=== PATIENT | female | born 1930 | race Caucasian/White ===

== ENCOUNTER 2017-04-07 22:57 | Emergency (ER) | payer MEDICARE, OTHER ==
[2013-11-22 18:27] VITALS: BMI 30.4
[~2017-04-07 22:57] MED LIST: COZAAR100 MG PO; LASIX40 MG PO; LEVAQUIN500 MG PO; MEDROL DOSE PACK4 MG PO; NEURONTIN 300300 MG PO; NEXIUM40 MG PO; NORVASC5 MG PO; NYSTATIN ORAL SU5 ML PO; PRAVASTATIN SOD10 MG PO; PROAIR HFA8.5 GM INH; SYNTHROID100 MCG PO; TESSALON PERLE100 MG PO; ULTRAM50 MG PO; ZANTAC150 MG PO
[2017-04-08 00:17] LABS: APPEARANCE CLEAR (CLEAR); BILIRUBIN NEGATIVE (NEGATIVE); COLOR YELLOW (YELLOW); GLUCOSE 50 mg/dL (NEGATIVE); KETONE NEGATIVE (NEGATIVE); NITRITE NEGATIVE (NEGATIVE); PROTEIN NEGATIVE (NEGATIVE); SPECIFIC GRAVITY 1.005 (1.005-1.020); UROBILINOGEN NORMAL (NORMAL)
[2017-04-08 00:39] LABS: BASOPHILS 0 % (0-2); EOSINOPHILS 0 % (0-7); HEMATOCRIT 32.6 % (36.0-48.0); HEMOGLOBIN 10.7 g/dL (12-16); LYMPHOCYTES 22.9 % (15-50); MCHC 32.8 g/dL (31.0-37.0); MCV 91.3 fL (80.0-100.0); MONOCYTES 1.6 % (2-11); NEUTROPHILS 75.5 % (40-80); PLATELET COUNT 250 10x3/uL (130-400); RBC 3.57 10x6/uL (4.00-5.40); RDW 12.4 % (11.5-14.5); WBC 4.5 10x3/uL (4.8-10.8)
[2017-04-08 01:06] LABS: ALBUMIN 3.4 g/dL (3.4-5.0); ANION GAP 15.1 mmol/L (8-16); BILIRUBIN - TOTAL 0.2 mg/dL (0.2-1.3); CALCIUM 8.9 mg/dL (8.5-10.1); CARBON DIOXIDE 24.8 mmol/L (21.0-32.0); CREATININE - SERUM 1.9 mg/dL (0.6-1.3); POTASSIUM - SERUM 4.9 mmol/L (3.5-5.1); PROTEIN - SERUM 7.3 g/dL (6.4-8.2)
== END 2017-04-08 01:30 | disposition home or self-care (01) ==
LOC: D.ER 22:57
PROVIDERS: Emergency Medicine
DX: G47.10 Hypersomnia, unspecified (principal); R73.9 Hyperglycemia, unspecified; N28.9 Disorder of kidney and ureter, unspecified; I10 Essential (primary) hypertension; E03.9 Hypothyroidism, unspecified; K21.9 Gastro-esophageal reflux disease without esophagitis

== ENCOUNTER → 2017-04-10 09:39 | Outpatient (CLI) | payer MEDICARE, OTHER ==
[2013-11-22 18:27] VITALS: BMI 30.4
== END | disposition home or self-care (01) ==
LOC: D.CT 09:39
DX: M54.31 Sciatica, right side (principal)

== ENCOUNTER 2017-08-16 09:31 | Emergency (ER) | payer MEDICARE, OTHER ==
[~2017-08-16] VITALS: Ht 157.5 cm; Wt 79.1 kg
[2017-08-16 09:32] VITALS: Ht 157.5 cm; Wt 79.1 kg
[2017-08-16 10:07] LABS: BASOPHILS 0.6 % (0-2); EOSINOPHILS 2.7 % (0-7); HEMATOCRIT 33.7 % (36.0-48.0); HEMOGLOBIN 10.6 g/dL (12-16); IMMATURE GRANULOCYTES 0.2 % (0-5); LYMPHOCYTES 11.1 % (15-50); MCH 29.9 pg (26.0-34.0); MCHC 31.5 g/dL (31.0-37.0); MCV 95.2 fL (80.0-100.0); MEAN PLATELET VOLUME 8.8 fL (7.4-10.4); MONOCYTES 4.2 % (2-11); NEUTROPHILS 81.2 % (40-80); PLATELET COUNT 247 10x3/uL (130-400); RBC 3.54 10x6/uL (4.00-5.40); RDW 13.2 % (11.5-14.5); WBC 8.1 10x3/uL (4.8-10.8)
[2017-08-16 10:26] LABS: ALBUMIN 3.5 g/dL (3.4-5.0); ANION GAP 13.1 mmol/L (8-16); BILIRUBIN - TOTAL 0.42 mg/dL (0.2-1.3); CALCIUM 9.7 mg/dL (8.5-10.1); CARBON DIOXIDE 30.5 mmol/L (21.0-32.0); CREATININE - SERUM 2.7 mg/dL (0.6-1.3); POTASSIUM - SERUM 4.6 mmol/L (3.5-5.1); PROTEIN - SERUM 7.6 g/dL (6.4-8.2)
[2017-08-16 10:38] LABS: APPEARANCE HAZY (CLEAR); BILIRUBIN NEGATIVE (NEGATIVE); COLOR YELLOW (YELLOW); GLUCOSE NEGATIVE (NEGATIVE); KETONE NEGATIVE (NEGATIVE); NITRITE NEGATIVE (NEGATIVE); PROTEIN TRACE mg/dL (NEGATIVE); SPECIFIC GRAVITY 1.005 (1.005-1.020); UROBILINOGEN NORMAL (NORMAL)
[2017-08-16 10:44] LABS: BACTERIA MODERATE /hpf (NONE SEEN); RED CELLS - URINE RARE /hpf (0-5); WHITE CELLS - URINE 0-5 /hpf (0-5)
[2017-08-16 10:45] LABS: MUCUS <1+ /lpf (NONE SEEN)
[2017-08-16 10:46] LABS: AMORPHOUS SEDIMENT <1+ /lpf (NONE SEEN)
[2017-08-16] MEDS ORDERED: ZOFRAN ODT4 MG/UDTAB PO (12:01)
[2017-08-16 13:07] VITALS: BP 183/78
== END 2017-08-16 13:08 | disposition home or self-care (01) ==
LOC: D.ER 09:31
PROVIDERS: Family Medicine
DX: A08.4 Viral intestinal infection, unspecified (principal); K52.89 Other specified noninfective gastroenteritis and colitis; R53.1 Weakness; I10 Essential (primary) hypertension; K21.9 Gastro-esophageal reflux disease without esophagitis

== ENCOUNTER → 2017-10-20 10:53 | Outpatient (CLI) | payer MEDICARE, OTHER ==
[2017-08-16 09:32] VITALS: BMI 31.9
[~2017-10-20 10:53] MED LIST changes: +ZOFRAN ODT4 MG/UDTAB PO
== END | disposition home or self-care (01) ==
LOC: D.US 10:53
DX: R60.9 Edema, unspecified (principal); M79.604 Pain in right leg

== ENCOUNTER → 2017-12-08 11:59 | Outpatient (CLI) | payer MEDICARE, OTHER ==
[2017-08-16 09:32] VITALS: BMI 31.9
== END | disposition home or self-care (01) ==
LOC: D.CT 11:59
DX: R91.8 Other nonspecific abnormal finding of lung field (principal)

== ENCOUNTER 2018-05-14 20:48 | Emergency (ER) | payer MEDICARE ==
[~2018-05-14] VITALS: Ht 157.5 cm; Wt 72.6 kg
[2018-05-14 21:07] VITALS: Ht 157.5 cm; Wt 72.6 kg
[2018-05-14 22:01] LABS: APPEARANCE CLEAR (CLEAR); BACTERIA FEW /hpf (NONE SEEN); BILIRUBIN NEGATIVE (NEGATIVE); COLOR YELLOW (YELLOW); EPITHELIAL CELLS 0-5 /hpf (0-5); GLUCOSE NEGATIVE (NEGATIVE); KETONE NEGATIVE (NEGATIVE); NITRITE NEGATIVE (NEGATIVE); PROTEIN TRACE mg/dL (NEGATIVE); UROBILINOGEN NORMAL (NORMAL)
[2018-05-14] MEDS ORDERED: PERCOCET 5-3251 TAB PO (23:37)
[2018-05-14 23:57] VITALS: BP 178/85
== END 2018-05-15 00:03 | disposition home or self-care (01) ==
LOC: D.ER 20:48
PROVIDERS: Family Medicine
DX: S76.012A Strain of muscle, fascia and tendon of left hip, initial encounter (principal); W18.30XA Fall on same level, unspecified, initial encounter; Y93.89 Activity, other specified; Y92.019 Unspecified place in single-family (private) house as the place of occurrence of the external cause

== ENCOUNTER 2018-12-16 03:40 | Inpatient (IN) | payer MEDICARE, OTHER ==
[~2018-12-16] VITALS: Ht 157.5 cm; Wt 69.4 kg
[~2018-12-16 03:40] MED LIST changes: +PERCOCET 5-3251 TAB PO; -ZANTAC150 MG PO; +ZANTAC300 MG PO
[2018-12-16 04:00] LABS: BASOPHILS 0.4 % (0-2); EOSINOPHILS 6.8 % (0-7); HEMATOCRIT 21.6 % (36.0-48.0); IMMATURE GRANULOCYTES 0.1 % (0-5); LYMPHOCYTES 31.5 % (15-50); MCH 32.1 pg (26.0-34.0); MCHC 31.9 g/dL (31.0-37.0); MCV 100.5 fL (80.0-100.0); MONOCYTES 7.8 % (2-11); NEUTROPHILS 53.4 % (40-80); PLATELET COUNT 225 10x3/uL (130-400); RBC 2.15 10x6/uL (4.00-5.40); RDW 15.2 % (11.5-14.5); WBC 6.8 10x3/uL (4.8-10.8)
[2018-12-16 04:03] LABS: HEMOGLOBIN 6.9 g/dL (12-16)
[2018-12-16 04:11] LABS: APTT 28.2 SECONDS (22.8-39.4); CALC OSMOLALITY 291 mosm/kg (275-300); CALCIUM 8.1 mg/dL (8.5-10.1); CARBON DIOXIDE 19.9 mmol/L (21.0-32.0); CHLORIDE - SERUM 105 mmol/L (98-107); CREATININE - SERUM 2.2 mg/dL (0.6-1.3); GLUCOSE 131 mg/dL (74-106); INR 0.98 (0.85-1.17); POTASSIUM - SERUM 5.1 mmol/L (3.5-5.1); PROTIME 12.5 SECONDS (11.6-15.0); SODIUM 138 mmol/L (136-145); UREA NITROGEN 51 mg/dL (7-18); eGFR NON AFRICAN AMERICAN 22 mL/min (90-120)
[2018-12-16 04:26] LABS: ALBUMIN 3.5 g/dL (3.4-5.0); ALKALINE PHOSPHATASE 59 U/L (46-116); ALT (SGPT) 15 U/L (10-68); BILIRUBIN - TOTAL 0.23 mg/dL (0.2-1.3); LIPASE 164 U/L (73-393); MAGNESIUM - SERUM 1.8 mg/dL (1.8-2.4); PRO BNP 3482 pg/mL (0-450); PROTEIN - SERUM 6.6 g/dL (6.4-8.2); THYROID STIMULATING HORMONE 5.67 uIU/mL (0.36-3.74)
[2018-12-16 04:30] LABS: TROPONIN-I < 0.017 ng/mL (0.000-0.060)
--- NOTE | 2018-12-16 04:50 | NUR ---
HEMOCULT POS. PT STOOL IS BLACK BUT PT IS TAKING IRON TABS
[2018-12-16 05:00] VITALS: BP 141/56
--- NOTE | 2018-12-16 05:00 | NUR ---
CONSENT SIGNED SEE PAPER FORM.
[2018-12-16 05:02] LABS: APPEARANCE CLOUDY (CLEAR); BACTERIA MANY /hpf (NEGATIVE); BILIRUBIN NEGATIVE (NEGATIVE); COLOR YELLOW (YELLOW); EPITHELIAL CELLS 0-5 /hpf (0-5); GLUCOSE NEGATIVE (NEGATIVE); KETONE NEGATIVE (NEGATIVE); NITRITE POSITIVE (NEGATIVE); PROTEIN TRACE mg/dL (NEGATIVE); RED CELLS - URINE 0-5 /hpf (0-5); UROBILINOGEN NORMAL (NORMAL); WHITE CELLS - URINE >50 /hpf (NEGATIVE)
--- NOTE | 2018-12-16 05:28 | NUR ---
PT REPORT CALLED BY MARY JOHN FROM ER.
--- NOTE | 2018-12-16 05:40 | NUR ---
PT ARRIVED TO FLOOR ALERT AND ORIENTED X4. RR EVEN AND UNLABORED. PT RECIEVING FIRST UNIT OF BLOOD UPON ARRIVAL. VITALS STABLE. FAMILY AT BEDSIDE. BED LOW,CALL LIGHT WITHIN REACH. WILL CONTINUE TO MONITOR.
[2018-12-16] MEDS ORDERED: ZYLOPRIM100 MG PO (05:48)
[2018-12-16 06:19] VITALS: BP 141/53; BMI 28.1
--- NOTE | 2018-12-16 06:32 | NUR ---
MARY FREIRE AND THIS NURRE STARTED PT 2ND UNIT OF BLOOD. VITALS STABLE AT THIS TIME. WILL CONTINUE TO MONITOR.
--- NOTE | 2018-12-16 07:30 | NUR ---
A/A/OX4. SECOND UNIT OF PRBC INFUSING AT 100CC HR AND INCREASED TO 125CC HR. IV SITE LEFT FOREARM WITHOUT REDNESS OR EDEMA. ASSESSMENT COMPLETED AND NO REQUESTS VOICED. DENIES ANY PAIN OR DISCOMFORT, VS STABLE. STATES SHE IS FEELING MUCH BETTER THAN WHEN SHE ARRIVED TO ER. WILL CONTINUE POC.
[2018-12-16 08:08] VITALS: BP 160/58
--- NOTE | 2018-12-16 09:30 | NUR ---
SECOND UNIT PRBC INFUSED. PT TOLERATED WELL WITH NO APPARENT PROBLEMS. V/S STABLE AT 97.6 75 16 163/72.
[2018-12-16 09:54] LABS: % SATURATION 18 % (15-55); IRON 40 ug/dl (35-150); TOTAL IRON BIND CAPACITY 215 ug/dl (260-445); UNSAT IRON BIND CAPACITY 175 ug/dl (150-375)
[2018-12-16 11:44] VITALS: BP 156/63
[2018-12-16 13:13] LABS: LDH 281 U/L (81-234)
--- NOTE | 2018-12-16 14:14 | NUR ---
I AGREE WITH THE CURRENT STATEMENT OF THE PROTECTION SPECIALIST ON STAFF
[2018-12-16 16:27] VITALS: BP 118/54
--- NOTE | 2018-12-16 19:20 | NUR ---
AWAKSE AND ALERT BED LOW AND LOCKED ASSISTED WITH NEEDS CALL LIGHT IS WITH PT TX IN PROGRESS
[2018-12-16 20:20] VITALS: BP 111/44
[2018-12-17] VITALS (10 sets, daily range): BP systolic 95–148; BP diastolic 37–56; Ht 157.5 cm; Wt 69.4 kg
--- NOTE | 2018-12-17 02:57 | NUR ---
I have reviewed this patient and I concur with the Shift Assessment completed by the Licensed Practical Nurse today this shift.
[2018-12-17 05:34] LABS: BASOPHILS 0.3 % (0-2); EOSINOPHILS 4.4 % (0-7); HEMATOCRIT 25.2 % (36.0-48.0); HEMOGLOBIN 8.2 g/dL (12-16); IMMATURE GRANULOCYTES 0.2 % (0-5); LYMPHOCYTES 20.2 % (15-50); MCH 31.5 pg (26.0-34.0); MCHC 32.5 g/dL (31.0-37.0); MEAN PLATELET VOLUME 9.5 fL (7.4-10.4); MONOCYTES 9.3 % (2-11); NEUTROPHILS 65.6 % (40-80); PLATELET COUNT 199 10x3/uL (130-400); RDW 15.7 % (11.5-14.5); WBC 6.7 10x3/uL (4.8-10.8)
[2018-12-17 05:44] LABS: MCV 96.9 fL (80.0-100.0)
[2018-12-17 05:56] LABS: ANION GAP 14.6 mmol/L (8-16); CALCIUM 7.7 mg/dL (8.5-10.1); CARBON DIOXIDE 20.9 mmol/L (21.0-32.0); CREATININE - SERUM 1.8 mg/dL (0.6-1.3); MAGNESIUM - SERUM 1.7 mg/dL (1.8-2.4); POTASSIUM - SERUM 5.5 mmol/L (3.5-5.1)
[2018-12-17 08:10] LABS: APTT 24.6 SECONDS (22.8-39.4); INR 1.07 (0.85-1.17); PROTIME 13.4 SECONDS (11.6-15.0)
--- NOTE | 2018-12-17 08:53 | NUR ---
PT TAKEN FOR BONE MARROW BIOPSY VIA BED.
--- NOTE | 2018-12-17 08:55 | NUR ---
PT RIGHT LOWER BACK/BUTTOCK DRESSING C/D/I FROM BONE MARROW BIOPSY.
[2018-12-17] MEDS ORDERED: FERROUS SULFAT325 MG PO (09:57)
[2018-12-17] MEDS ORDERED: SYNTHROID112 MCG PO (10:02)
[2018-12-17] MEDS ORDERED: ASPIRIN81 MG PO (10:28)
[2018-12-17] MEDS ORDERED: ENTRESTO 49 MG1 EACH PO (10:29)
[2018-12-17] MEDS ORDERED: MULTI-DAY VITAM1 TAB PO (10:30)
[2018-12-17] MEDS ORDERED: CO Q-10200 MG PO (10:31)
[2018-12-17] MEDS ORDERED: FISH OIL 1,0001 CA1 PO (10:32)
[2018-12-17] MEDS ORDERED: VITAMIN D2000 UNIT PO (10:32)
[2018-12-17] MEDS ORDERED: CALCIUM 600 +1 EAC3 PO (10:33)
[2018-12-17] MEDS ORDERED: [UNRECOGNIZED DRUG - OTHER] PO (10:35)
[2018-12-17] MEDS ORDERED: PREBIOTIC PO (10:35)
--- NOTE | 2018-12-17 11:30 | NUR ---
PT RETURNED FROM EGD. ALERT AND ORIENTED. O2 AT 2L VIA NC. VS STABLE. BED LOW. CL IN REACH.
--- NOTE | 2018-12-17 12:10 | NUR ---
SPOKE WITH ANJUM PRESTON ABOUT LOOKING AT PT'S HOME MED LIST AND RESTARTING MEDICATIONS. I STATED TO HER THAT I CORRECTED MED LIST. SHE STATED SHE WOULD.
--- NOTE | 2018-12-17 15:28 | NUR ---
I have reviewed this patient and I concur with the Shift Assessment completed by the Licensed Practical Nurse today this shift.
--- NOTE | 2018-12-17 16:04 | NUR ---
PT RETURNED FROM EGD. ALERT AND ORIENTED. O2 AT 2L VIA NC. VS STABLE. BED LOW. CL IN REACH.
--- NOTE | 2018-12-17 19:18 | NUR ---
PT ALERT AND AWAKE LCTA SKIN WARM AND DRY ASKS FOR AND RECIEVES WATER BED LOW AND LOCKED AND CALL LIGHTY IN REACH FAMILY IS PRESENT
[2018-12-18 00:19] VITALS: BP 121/57
--- NOTE | 2018-12-18 01:10 | NUR ---
I have reviewed this patient and I concur with the Shift Assessment completed by the Licensed Practical Nurse today this shift.
[2018-12-18 04:30] VITALS: BP 135/55
[2018-12-18 06:19] LABS: BASOPHILS 0.6 % (0-2); EOSINOPHILS 6.6 % (0-7); HEMATOCRIT 24.1 % (36.0-48.0); HEMOGLOBIN 7.7 g/dL (12-16); IMMATURE GRANULOCYTES 0.3 % (0-5); LYMPHOCYTES 18.7 % (15-50); MCH 31.8 pg (26.0-34.0); MEAN PLATELET VOLUME 9.5 fL (7.4-10.4); MONOCYTES 12.7 % (2-11); NEUTROPHILS 61.1 % (40-80); PLATELET COUNT 184 10x3/uL (130-400); RBC 2.42 10x6/uL (4.00-5.40); RDW 15.1 % (11.5-14.5); WBC 6.2 10x3/uL (4.8-10.8)
[2018-12-18 06:24] LABS: CALCIUM 7.5 mg/dL (8.5-10.1); CARBON DIOXIDE 21.6 mmol/L (21.0-32.0); CREATININE - SERUM 1.8 mg/dL (0.6-1.3); MAGNESIUM - SERUM 1.8 mg/dL (1.8-2.4); POTASSIUM - SERUM 5.6 mmol/L (3.5-5.1)
[2018-12-18 06:26] LABS: MCV 99.6 fL (80.0-100.0)
--- NOTE | 2018-12-18 07:00 | NUR ---
RECEIVED REPORT. ASSUMED CARE OF PATIENT. BEDSIDE SHIFT REPORT COMPLETE. PATIENT RESTING IN BED. RESP EVEN AND UNLABORED. NO DISTRESS. CALL LIGHT WITHIN REACH. FAMILY AT BEDSIDE.
[2018-12-18 07:44] VITALS: BP 120/47
--- NOTE | 2018-12-18 09:05 | NUR ---
CALLED BLOOD BANK TO LET THEM KNOW THIS INSTRUMENT WORKER IS AWARE THE BLOOD IS READY BUT I AM HANGING A 30 MINUTE ABT ON THE PATIENT BEFORE I START THE BLOOD. WILL BE THERE IN ABOUT 45 MINUTES TO ORBITREAD OPERATOR THE BLOOD.
--- NOTE | 2018-12-18 10:26 | NUR ---
UNIT #1 OF PRBCs INITIATED AT THIS TIME. TOLERATING UNIT WELL. PREMEDICATED WITH BENADRYL AND TYLENOL. NO DISTRESS. FAMILY AT BEDSIDE. VS STABLE.
[2018-12-18 11:41] VITALS: BP 110/44
--- NOTE | 2018-12-18 13:05 | NUR ---
IST UNIT PRBCs COMPLETED AT THIS TIME AND LAXIS ADMINISTERED. TOELRATED 1ST UNIT WELL.
--- NOTE | 2018-12-18 13:17 | NUR ---
2ND UNIT PRBC'S INITIATED AT THIS TIME. VS STABLE. PATIENT TOLERATING TRANSFUSION WELL. NO DISTRESS. CALL LIGHT WITHIN REACH.
--- NOTE | 2018-12-18 13:54 | NUR ---
JAQUELIN CALLED TO RESCHEDULE PATIENTS MAHNAZ FOR TOMORROW SINCE SHE IS STILL IN DIALYSIS. JAQUELIN STATES THE LUMBER TYING MACHINE OPERATOR WENT TO PICK THE PATIENT UP AND SHE WAS STILL ON THE MACHINE. THIS DRAFTER CASTINGS CALLED DIALYSIS AND LENCHO STATES SHE HAS BEEN DONE AND WAITING FOR SOMEONE TO COME AND PICK HER UP. NOW, PATIENT WILL BE NPO AFTER MN TONIGHT FOR MAHNAZ TOMORROW SCHEDULED FOR 1PM.
[2018-12-18 14:56] VITALS: BP 142/48
--- NOTE | 2018-12-18 16:30 | NUR ---
2ND UNIT PRBCs COMPLETED INFUSING. AT BEDSIDE FOR ROUNDS. NO DISTRESS. CALL LIGHT WITHIN REACH. PATIENT TOLERATED BLOOD TRANSFUSION WELL.
--- NOTE | 2018-12-18 19:05 | NUR ---
Report received, will continue POC. Patient is A/OX4, lying on left side with eyes closed. No S/S of distress observed, RR even and unlabored. Patient denies needs at this time. CL in reach, bed locked and lowered. Will CTM.
[2018-12-18 20:00] VITALS: BP 124/67
--- NOTE | 2018-12-18 20:25 | NUR ---
Administered PM meds, fresh water given.
--- NOTE | 2018-12-18 22:51 | NUR ---
PATIENT C/O COUGHING AND WANTING TO KNOW WHAT IF SHE HAS ALBUTEROL INHALER HERE, LIKE SHE DOES AT HOME. EDUCATED PATIENT OF MED LIST. INFORMED PATIENT A PAGE WOULD BE PUT IN SO THAT SHOULD COULD RECEIVE RESP. TX TONIGHT. PAGE MOHAN DILL, ORDERS GIVEN.
[2018-12-19] VITALS: BP 139/59
--- NOTE | 2018-12-19 01:45 | NUR ---
I have reviewed this patient and I concur with the Shift Assessment completed by the Licensed Practical Nurse today this shift.
[2018-12-19 04:00] VITALS: BP 120/53
[2018-12-19 04:40] LABS: BASOPHILS 0.5 % (0-2); EOSINOPHILS 8.6 % (0-7); IMMATURE GRANULOCYTES 0.2 % (0-5); MCH 30.2 pg (26.0-34.0); MCHC 32.3 g/dL (31.0-37.0); MEAN PLATELET VOLUME 9.2 fL (7.4-10.4); MONOCYTES 11.4 % (2-11); NEUTROPHILS 64.3 % (40-80); PLATELET COUNT 164 10x3/uL (130-400); RDW 17.2 % (11.5-14.5); WBC 6.6 10x3/uL (4.8-10.8)
[2018-12-19 04:51] LABS: MCV 93.7 fL (80.0-100.0); RBC 3.31 10x6/uL (4.00-5.40)
[2018-12-19 05:03] LABS: ANION GAP 12.8 mmol/L (8-16); CALCIUM 7.6 mg/dL (8.5-10.1); CARBON DIOXIDE 22.8 mmol/L (21.0-32.0); CREATININE - SERUM 1.6 mg/dL (0.6-1.3); MAGNESIUM - SERUM 1.7 mg/dL (1.8-2.4)
[2018-12-19 05:07] LABS: POTASSIUM - SERUM 4.6 mmol/L (3.5-5.1)
[2018-12-19 09:01] VITALS: BP 168/78
[2018-12-19] MEDS ORDERED: MACRODANTIN100 MG PO (12:04)
[2018-12-19] MEDS ORDERED: PROTONIX40 MG PO (12:05)
[2018-12-19 12:49] VITALS: BP 180/71
--- NOTE | 2018-12-19 14:08 | EC ---
PATIENT:VENTURA HUANG DATE OF SERVICE: 12/16/18 SEX: F MEDICAL RECORD: [id number] DATE OF : [birth year] LOCATION:D.M2 D.210 AGE OF PATIENT: 88 ADMISSION DATE: 12/16/18 REFERRING PHYSICIAN: INTERPRETING PHYSICIAN: SANTIAGO LINDSAY MD ECHOCARDIOGRAM REPORT ECHO CHARGES 4 ECHO COMPLETE Date: 12/16/18 CLINICAL DIAGNOSIS: DYSPNEA ECHOCARDIOGRAPHIC MEASUREMENTS (adult normal given) AC root (d.<3.7cm) 2.5 cm LV Septum d (<1.2 cm> 1.2 cm Valve Excursion 1.0 cm LV Septum (systole) 1.5 cm Left Atria (s.<4.0cm> 3.3 cm LVPW d(<1.2cm) 1.3 cm RV (d.<2.3cm) 3.4 cm LVPW (sytole) 1.7 cm LV diastole(<5.6CM) 4.3 cm MV E-F(>70mm/sec) cm LV systole 2.6 cm LVOT Diameter 1.6 cm MV exc.(>10mm) 1.9 cm Est.ejection fraction (50-75%) % DOPPLER: LVIT cm/sec A 115 cm/sec E 138 cm/sec LA cm/sec RVSP 58 mmHg LVOT 112 cm/sec AOP1/2T m/s Asc. Ao 448 cm/sec RVOT 116 cm/sec RA cm/sec PA 140 cm/sec AV Gradient Peak 80.25mmHg AV Mean 48.94mmHg AV Area 0.6 cm MV Gradient Peak 17.02mmHg MV Mean 7.01 mmHg MV Area cm COMMENTS: Edge Baster: 2 PEDRO PABLO ELIZONDO Public Health Service Officer: 1 Dr. Lindsay TAPE# PACS Pericardial Effusion N DATE OF SERVICE: FINDINGS: 1. Left ventricular chamber size is within normal limits. Left ventricular systolic function is normal. Overall ejection fraction estimated at 60% to 65%. 2. Left atrium, right atrium, and right ventricular chamber sizes are within normal limits. 3. Valvular structures: Aortic valve demonstrates severe calcific aortic stenosis, valve area calculates to 0.6 cm-squared with gradient of 80 mm across the valve. The remaining valvular structures have normal structure and motion. ECHOCARDIOGRAM REPORT [id number] VENTURA HUANG 4. Doppler interrogation elsewise reveals mild aortic insufficiency, utcu-pw-lcauiaob mitral regurgitation, kyze-jp-waaalvav tricuspid regurgitation, no other valvular insufficiency or stenosis. Pulmonary systolic pressure is estimated at 58 mmHg. 5. No evidence of pericardial effusion or left ventricular thrombus. TRANSINT:[id number] Voice Confirmation ID: [id number] DOCUMENT ID: [id number] SANTIAGO LINDSAY MD at 1408 CC: [id number] DICTATION DATE: 12/17/181527 REED REPAIRER: 12/18/18 0036 ADM IN [place] [id number] [place] [id number]
--- NOTE | 2018-12-19 14:58 | NUR ---
LEFT FA IV DC'WITH [facility]. DISCHARGE INSTRUCTIONS GIVEN TO PT, PT'S SPOUSE AND PT'S DAUGHTER. THEY HAD NO FURTHER QUESTIONS AT THIS TIME. CHART COPY SIGNED. PT TAKEN DOWN VIA WC BY VOLUNTEER ACCOMPANIED BY DAUGHTER AND SPUSE AND LEFT IN PERSONAL CAR.
--- NOTE | 2018-12-19 15:32 | MORECARE ---
CASE MANAGEMENT DISCHARGE SUMMARY PATIENT: VENTURA HUANG UNIT: [id number] ADM DATE: 12/16/18 AGE: 88 : [birth year] SEX: F ROOM/BED: D.2107 AUTHOR: ASHLEY CLAYTON PHYSICIAN: REFERRING PHYSICIAN: ALVINO SCHAFFER MD DATE OF SERVICE: 12/19/18 Discharge Plan Patient Name: VENTURA HUANG Facility: [facility]:[place] : 1930 Planned Disposition: Home Anticipated Discharge Date: 12/19/18 Discharge Date: 12/19/2018 Expected LOS: 3 Initial Reviewer: [email or web address] Initial Review Date: 12/19/2018 Generated: 12/19/18 4:31 pm Patient Name: VENTURA HUANG Page [id number] at 1532 All edits/amendments must be made on the electronic document DICTATION DATE: 12/19/18 1531 MACHINE ICER: NALDO 12/19/18 1531 RPT#: [id number] DC DATE:12/19/18 STATUS: DIS IN [address] [place] [address] END OF REPORT
--- NOTE | 2018-12-19 15:41 | MORECARE ---
CASE MANAGEMENT DISCHARGE SUMMARY PATIENT: VENTURA HUANG UNIT: [id number] ADM DATE: 12/16/18 AGE: 88 : [birth year] SEX: F ROOM/BED: D.2107 AUTHOR: FORREST,DOC PHYSICIAN: REFERRING PHYSICIAN: ALVINO SCHAFFER MD DATE OF SERVICE: 12/19/18 Discharge Plan Patient Name: VENTURA HUANG Facility: [facility]:[place] : 1930 Planned Disposition: Home Anticipated Discharge Date: 12/19/18 Discharge Date: 12/19/2018 Expected LOS: 3 Initial Reviewer: [email or web address] Initial Review Date: 12/19/2018 Generated: 12/19/18 4:41 pm Comments DCP- Discharge Planning Updated by [email or web address]: Ramone Dixon on 12/19/18 2:[address] Patient Name: VENTURA HUANG Admission Status: ER Accout number: [id number] Admission Date: 12-16-2018 : 1930 Admission Diagnosis:ANEMIA, UNSPECIFIED Attending: ALVINO SCHAFFER Current LOS: 3 Anticipated DC Date: 12-19-2018 Planned Disposition: Home Primary Insurance: MEDICARE A & B Discharge Planning Comments: CM RECEIVED DISCHARGE ORDER, MET WITH PT AND SPOUSE IN ROOM TO DISCUSS DISCHARGE PLANNING AND NEEDS. VENTURA HUANG provided verbal consent to discuss current and ongoing needs with/in the presence of: SPOUSE, CHRISTIANO. PT REPORTS LIVING AT HOME INDEPENDENTLY WITH HER SPOUSE. PT HAS WALKER, WHEELCHAIR AND "GRABBERS" TO REACH AND STEEL INSPECTOR THINGS. PT HAS NO MEDICAL EQUIPMENT PROVIDER PREFERENCE. PT HAS NO OUTSIDE SERVICES ASSISTING IN THE HOME. CM DISCUSSED AVAILABILITY OF HOME HEALTH, REHAB SERVICES AND MEDICAL EQUIPMENT. PT DENIES DISCHARGE NEEDS, REPORTS HER SPOUSE IS HERE AND WILL PICK HER UP FOR DISCHARGE HOME TODAY. IMPORTANT MESSAGE FROM MEDICARE PROVIDED AND EXPLAINED. FILM RECORDIST NURSE NOTIFIED. Block Hand: Ramone Dixon DCPIA - Discharge Planning Initial Assessment Updated by [id number]: Ramone Dixon on 12/19/18 3:32 pm * Is the patient Alert and Oriented? Yes * How many steps to enter\\exit or inside your home? 2-O / 2-I * PCP DR. GUTIERREZ * Pharmacy [facility] IN [place] ON [facility] * Preadmission Environment Home with Family * ADLs Independent * Equipment Grab Bars Other Walker Wheelchair * Other Equipment "GRABBERS" TO REACH AND STEEL INSPECTOR THINGS * List name and contact numbers for known caregivers / representatives who currently or will assist patient after discharge: ELOINA MARTINEZ, * Verbal permission to speak to the caregivers and representatives has been obtained from the patient. Yes * Community resources currently utilized None * Please name any agencies selected above. NONE * Additional services required to return to the preadmission environment? No * Can the patient safely return to the preadmission environment? Yes * Has this patient been hospitalized within the prior 30 days at any hospital? No Coverage Notice Reviewer: [id number] Rossy Dixon Notice Issued Date-Time: 12/19/2018 13:08 Notice Type: IM Discharge Notice Notice Delivered To: Patient Relationship to Patient: Regional Office Coordinator Name: Delivery Method: HAND - Hand Delivered Sujey Days: Prior Verbal Notification: Recipient Understood Notice: Yes Recipient Signature: Yes Med Rec Note Co-signed by Attending: Coverage Notice Comment: Last DP export: 12/19/18 2:32 p Patient Name: VENTURA HUANG Page [phone] at 1541 All edits/amendments must be made on the electronic document DICTATION DATE: 12/19/181540 [employer] SUPERINTENDENT: NALDO 12/19/181540 RPT#: [id number] DC DATE:12/19/18 STATUS: DIS IN [place] [id number] [place] [address] END OF REPORT
[2018-12-20 16:08] LABS: VIABILITY: 97% (())
== END 2018-12-19 15:00 | disposition home or self-care (01) | DRG 841 ==
LOC: D.ER 03:40 → D.M2 04:15
PROVIDERS: Family Medicine; Internal Medicine Gastroenterology; Internal Medicine Hematology & Oncology; Specialist; ADMIT Internal Medicine Nephrology; ATTEND Internal Medicine Nephrology
PROC: 0DB68ZX Excision of Stomach, Via Natural or Artificial Opening Endoscopic, Diagnostic (ICD-10-PCS; 2018-12-17)
PROC: 07DR3ZX Extraction of Iliac Bone Marrow, Percutaneous Approach, Diagnostic (ICD-10-PCS; principal; 2018-12-17 09:31)
DX: C91.10 Chronic lymphocytic leukemia of B-cell type not having achieved remission (principal); N39.0 Urinary tract infection, site not specified; N17.9 Acute kidney failure, unspecified; D53.9 Nutritional anemia, unspecified; K44.9 Diaphragmatic hernia without obstruction or gangrene; K21.9 Gastro-esophageal reflux disease without esophagitis; M19.90 Unspecified osteoarthritis, unspecified site; I11.0 Hypertensive heart disease with heart failure; I50.9 Heart failure, unspecified